=== PATIENT | female | born 1975 | race African-American/Black ===

== ENCOUNTER 2019-01-25 12:39 | Inpatient (IN) | payer OTHER ==
[~2019-01-25] VITALS: Ht 165.1 cm; Wt 104.3 kg
[~2019-01-25 12:39] MED LIST: ALPR0.5T PO
[2019-01-25] MEDS ORDERED: SODIUM CHLORIDE 0.9% 1,000 ML IV ONE ×2 (16:06→17:38)
[2019-01-25 16:52] LABS: BASOPHILS % 0.4 % (0.0-2.0); EOSINOPHILS % 0.4 % (0.0-5.0); HEMATOCRIT. 25.8 % (36.0-48.0); HEMOGLOBIN. 8.4 g/dL (12.0-16.0); LYMPHOCYTES % 22.7 % (20.0-50.0); MEAN CORPUSCULAR HEMOGLOBIN 28.3 pg (28.0-32.0); MEAN PLATELET VOLUME 7.9 fl (7.4-10.4); MONOCYTES % 10.2 % (2.0-8.0); NEUTROPHILS % 66.3 % (40.0-76.0); PLATELET 230 x1000/uL (130-400); RED BLOOD CELL COUNT 2.97 mill/uL (4.2-5.4); RED CELL DISTRIBUTION WIDTH 25.4 % (11.6-14.6)
[2019-01-25 16:56] LABS: CHLORIDE 88 mEq/L (98-107)
[2019-01-25 17:03] LABS: HCG SCREEN NEGATIVE
[2019-01-25 17:40] LABS: PLATELET ESTIMATE NORMAL
[2019-01-25] MEDS ORDERED: KCL 20MEQ/100ML PREMIX 100 ML IV ONE (17:45)
[2019-01-25 18:00] LABS: BG BASE EXCESS 2.7 mmol/L (-2.0-2.0); BG CARBOXYHEMOGLOBIN 0.6 % (0.5-1.5); BG DEOXYHEMOGLOBIN 3.3 % (0.0-5.0); BG HCO3 ACT 24.9 mmol/L (22.0-26.0); BG METHEMOGLOBIN 0.5 % (0.0-1.5); BG OXYGEN SATURATION 96.7 % (92.0-98.5); BG OXYHEMOGLOBIN 95.6 % (94.0-97.0); BG PH 7.551 (7.350-7.450); BG PO2 89.7 mmHg (75.0-100.0); BG SAMPLE SITE RIGHT RADIAL; BG TOTAL HEMOGLOBIN 8.4 g/dL (12.0-18.0); BG VENT MODE ROOM AIR
[2019-01-25 18:24] LABS: CHLORIDE 93 mEq/L (98-107)
[2019-01-25 18:30] LABS: PHOSPHORUS 1.4 mg/dL (2.5-4.9)
[2019-01-25] MEDS ORDERED: ACETAMINOPHEN 325MG TABLET PO PRN (18:45)
[2019-01-25] MEDS ORDERED: IPRATROPIUM/ALBUTEROL 0.5-3(2.5)MG/3ML NEB INH PRN (18:45)
[2019-01-25] MEDS ORDERED: GUAIFENESIN 200MG/10ML SUGAR FREE UDC PO PRN (18:45)
[2019-01-25] MEDS ORDERED: NITROGLYCERIN 0.4MG TABLET SL SL PRN (18:45)
[2019-01-25] MEDS ORDERED: MAGNESIUM/ALUMINUM HYDROXIDE/SIMETHICONE 30ML UDC PO PRN (18:45)
[2019-01-25] MEDS ORDERED: ONDANSETRON HCL 4MG/2ML INJ IV PRN (18:45)
[2019-01-25] MEDS ORDERED: DOCUSATE SODIUM 100MG CAPSULE PO PRN (18:45)
[2019-01-25] MEDS ORDERED: ENOXAPARIN 40MG/0.4ML SYR SUBCUT SCH (18:45)
[2019-01-25] MEDS ORDERED: KETOROLAC 15MG/ML VIAL IV PRN (18:45)
[2019-01-25] MEDS ORDERED: CLONIDINE 0.1MG TABLET PO PRN (18:45)
[2019-01-25] MEDS ORDERED: DEXTROSE 50% WATER 50ML SYRINGE IV PRN (19:00)
[2019-01-25] MEDS ORDERED: KETOROLAC 30MG/ML VIAL IV ONE (19:15)
[2019-01-25 19:24] LABS: CLARITY URINE CLEAR (CLEAR); COLOR URINE DARK YELLOW (YELLOW); KETONES URINE 2+ (NEGATIVE); LEUKOCYTE ESTERASE URINE NEGATIVE (NEGATIVE); NITRITE URINE NEGATIVE (NEGATIVE); OCCULT BLOOD URINE NEGATIVE (NEGATIVE); PH URINE 6.5 (4.5-8.0); PROTEIN URINE NEGATIVE (NEGATIVE); SPECIFIC GRAVITY URINE 1.036 (1.005-1.030)
[2019-01-25 19:30] LABS: BETA HYDROXYBUTYRATE 2.3 mMol/L (0.0-0.3); ETHANOL BLOOD < 10 mg/dL
[2019-01-25 19:46] LABS: *AMPHETAMINES SCREEN URINE NEGATIVE (NEGATIVE); *BARBITURATES SCREEN URINE NEGATIVE (NEGATIVE); *BENZODIAZEPINES SCREEN URINE NEGATIVE (NEGATIVE); *COCAINE SCREEN URINE NEGATIVE (NEGATIVE); METHADONE URINE SCREEN NEGATIVE (NEGATIVE)
[2019-01-25 19:47] LABS: CANNABINOID URINE SCREEN NEGATIVE (NEGATIVE); OPIATES URINE SCREEN NEGATIVE (NEGATIVE); PHENCYCLIDINE URINE SCREEN NEGATIVE (NEGATIVE)
[2019-01-25] MEDS ORDERED: POTASSIUM CHLORIDE 20MEQ TABLET SR PO NR (19:47)
[2019-01-25] MEDS ORDERED: MAGNESIUM 2 G PREMIX 50 ML IV NR (19:47)
[2019-01-25] MEDS ORDERED: KCL 20MEQ/100ML PREMIX 100 ML IV NR (19:49)
[2019-01-25] MEDS ORDERED: SODIUM CHL 0.9% + KCL 20MEQ/L 1,000 ML IV SCH (20:00)
[2019-01-25] MEDS ORDERED: POTASSIUM PHOS,M-BASIC-D-BASIC 30 MMOL in DEXT 5% WATER 500 ML IV NR (20:30)
[2019-01-25] MEDS ORDERED: SODIUM CHLORIDE 0.9% 1000ML BAG (SEPSIS BOLUS) IV ONE (21:00)
[2019-01-25] MEDS ORDERED: CEFTRIAXONE 1 G PREMIX 50 ML IV ONE (21:30)
[2019-01-25 21:34] LABS: CHLORIDE 95 mEq/L (98-107)
[2019-01-25] MEDS ORDERED: IOHEXOL-300 100 ML BOTTLE ONE (21:39)
[2019-01-25 21:49] LABS: PHOSPHORUS 0.9 mg/dL (2.5-4.9)
[2019-01-25] MEDS ORDERED: LEVOFLOXACIN 500MG PREMIX 100 ML IV SCH (22:45)
[2019-01-25 23:00] VITALS: BP 127/93
[2019-01-25] MEDS ORDERED: ZOLPIDEM TARTRATE 5MG TABLET PO PRN (23:00)
[2019-01-25] MEDS: BLOOD SUGAR DIAGNOSTIC STRIP TEST SCH (23:00)
[2019-01-25] MEDS ORDERED: INSULIN GLARGINE UD 100 UNITS/ML SYR SUBCUT SCH (23:30)
[2019-01-25 23:45] VITALS: BP 127/93
[2019-01-26] VITALS (7 sets, daily range): BP systolic 99–125; BP diastolic 68–82
[2019-01-26 00:11] LABS: CHLORIDE 98 mEq/L (98-107)
[2019-01-26 00:17] LABS: PHOSPHORUS 1.1 mg/dL (2.5-4.9)
[2019-01-26] MEDS: FAMOTIDINE 20MG TABLET PO SCH ×3 (00:28→20:29)
[2019-01-26] MEDS: INSULIN LISPRO 100 UNITS/ML SUBCUT SCH ×6 (00:38→20:34)
[2019-01-26 00:53] LABS: T4 FREE 1.29 ng/dL (0.76-1.46)
[2019-01-26] MEDS ORDERED: LEVOFLOXACIN 750MG PREMIX 150 ML IV SCH (01:00)
[2019-01-26 01:47] LABS: FOLIC ACID (FOLATE) SERUM 2.1 ng/mL (>5.38)
[2019-01-26] MEDS: KETOROLAC 15MG/ML VIAL IV PRN ×3 (02:24→21:29)
[2019-01-26] MEDS: BLOOD SUGAR DIAGNOSTIC STRIP TEST SCH ×4 (06:48→20:26)
[2019-01-26 11:44] LABS: BASOPHILS % 0.3 % (0.0-2.0); EOSINOPHILS % 0.8 % (0.0-5.0); HEMATOCRIT. 24.6 % (36.0-48.0); HEMOGLOBIN. 7.8 g/dL (12.0-16.0); LYMPHOCYTES % 23.1 % (20.0-50.0); MEAN CORPUSCULAR HEMOGLOBIN 28.3 pg (28.0-32.0); MEAN CORPUSCULAR VOLUME 89.4 fL (81.0-99.0); MEAN PLATELET VOLUME 7.7 fl (7.4-10.4); MONOCYTES % 9.8 % (2.0-8.0); PLATELET 206 x1000/uL (130-400); RED BLOOD CELL COUNT 2.75 mill/uL (4.2-5.4); RED CELL DISTRIBUTION WIDTH 27.3 % (11.6-14.6)
[2019-01-26 11:50] LABS: CHLORIDE 102 mEq/L (98-107)
[2019-01-26 11:57] LABS: LDL CHOLESTEROL 108 mg/dL (5-100)
[2019-01-26 12:02] LABS: PHOSPHORUS 0.7 mg/dL (2.5-4.9)
[2019-01-26 12:10] LABS: HAPTOGLOBIN 68 mg/dL (30-200)
[2019-01-26] MEDS ORDERED: POTASSIUM PHOS,M-BASIC-D-BASIC 30 MMOL in SODIUM CHLORIDE 0.9% 500 ML IV SCH (12:30)
[2019-01-26] MEDS ORDERED: FOLIC ACID 1 MG in SODIUM CHLORIDE 0.9% 500 ML IV SCH (12:30)
[2019-01-26] MEDS ORDERED: SODIUM CHLORIDE 0.9% 1,000 ML IV SCH (13:30)
[2019-01-26] MEDS ORDERED: NYSTATIN POWDER 15GM TOP SCH (17:00)
[2019-01-26 17:13] LABS: HEPATITIS B SURFACE ANTIGEN NEGATIVE
[2019-01-26 17:43] LABS: HEPATITIS A AB IGM NEGATIVE (NEGATIVE)
[2019-01-26] MEDS ORDERED: INSULIN GLARGINE UD 100 UNITS/ML SYR SUBCUT SCH (23:00)
[2019-01-27] MEDS ORDERED: FOLIC ACID 1MG TABLET PO SCH (09:00)
== END 2019-01-27 00:06 | disposition short-term general hospital (02) | DRG 871 ==
LOC: ER 12:39 → 5WST 19:13 → ENRESERV 19:51
PROVIDERS: ADMIT Internal Medicine; ATTEND Internal Medicine
DX: A41.9 Sepsis, unspecified organism (principal); E43 Unspecified severe protein-calorie malnutrition; K72.00 Acute and subacute hepatic failure without coma; Z88.9 Allergy status to unspecified drugs, medicaments and biological substances; D52.9 Folate deficiency anemia, unspecified; E11.65 Type 2 diabetes mellitus with hyperglycemia; E83.39 Other disorders of phosphorus metabolism; E83.42 Hypomagnesemia; E83.51 Hypocalcemia; E86.0 Dehydration; R74.0 Nonspecific elevation of levels of transaminase and lactic acid dehydrogenase [LDH]; E87.6 Hypokalemia; Z86.32 Personal history of gestational diabetes; Z88.5 Allergy status to narcotic agent; F41.9 Anxiety disorder, unspecified; Z68.38 Body mass index [BMI] 38.0-38.9, adult; Z79.4 Long term (current) use of insulin
CPT/HCPCS: 36415; 36600; 71045; 74177; 80048; 80076; 80305; 80307; 80320; 80329; 82010; 82375; 82607; 82746; 82805; 82962; 83010; 83036; 83540; 83550; 83605; 83615; 83721; 83735; 84100; 84439; 84443; 84703; 86705; 86709; 86803; 87340; 93005; 93970; 96365; 99285; J0696; J1815; J1885; J1956; J2405; J3475; J3480; J3490; J7030; J7040; J7060; Q9967; A4315; G0480

== ENCOUNTER 2019-03-24 12:10 | Inpatient (IN) | payer OTHER ==
[~2019-03-24] VITALS: Ht 165.1 cm; Wt 90.7 kg
[2019-03-24 13:04] LABS: BASOPHILS % 1.4 % (0.0-2.0); EOSINOPHILS % 2.3 % (0.0-5.0); HEMATOCRIT. 39.1 % (36.0-48.0); HEMOGLOBIN. 12.8 g/dL (12.0-16.0); LYMPHOCYTES % 27.6 % (20.0-50.0); MEAN CORPUSCULAR HEMOGLOBIN 29.8 pg (28.0-32.0); MEAN CORPUSCULAR VOLUME 90.7 fL (81.0-99.0); MEAN PLATELET VOLUME 8.1 fl (7.4-10.4); MONOCYTES % 10.4 % (2.0-8.0); NEUTROPHILS % 58.3 % (40.0-76.0); PLATELET 275 x1000/uL (130-400); RED BLOOD CELL COUNT 4.31 mill/uL (4.2-5.4); RED CELL DISTRIBUTION WIDTH 16.6 % (11.6-14.6)
[2019-03-24 13:10] LABS: CHLORIDE 106 mEq/L (98-107)
[2019-03-24 13:14] LABS: INR 1.1; PARTIAL THROMBOPLASTIN TIME 25.2 sec (23.4-31.0); PROTHROMBIN TIME 11.7 sec (9.6-11.0)
[2019-03-24 14:20] LABS: HCG SCREEN NEGATIVE
[2019-03-24] MEDS ORDERED: SODIUM CHLORIDE 0.9% 1,000 ML IV ONE ×2 (14:32→18:44)
[2019-03-24] MEDS ORDERED: LORAZEPAM 2MG/ML CPJ IV ONE ×3 (14:45→19:15)
[2019-03-24 17:32] LABS: CLARITY URINE CLOUDY (CLEAR); COLOR URINE YELLOW (YELLOW); KETONES URINE TRACE (NEGATIVE); LEUKOCYTE ESTERASE URINE 2+ (NEGATIVE); NITRITE URINE NEGATIVE (NEGATIVE); OCCULT BLOOD URINE TRACE (NEGATIVE); PROTEIN URINE NEGATIVE (NEGATIVE); SPECIFIC GRAVITY URINE 1.071 (1.005-1.030)
[2019-03-24 17:49] LABS: *AMPHETAMINES SCREEN URINE NEGATIVE (NEGATIVE); *BARBITURATES SCREEN URINE NEGATIVE (NEGATIVE); *BENZODIAZEPINES SCREEN URINE NEGATIVE (NEGATIVE); *COCAINE SCREEN URINE NEGATIVE (NEGATIVE); METHADONE URINE SCREEN NEGATIVE (NEGATIVE); OPIATES URINE SCREEN NEGATIVE (NEGATIVE)
[2019-03-24 17:51] LABS: CANNABINOID URINE SCREEN NEGATIVE (NEGATIVE); PHENCYCLIDINE URINE SCREEN NEGATIVE (NEGATIVE)
[2019-03-24] MEDS ORDERED: CEFTRIAXONE 1 G PREMIX 50 ML IV ONE (18:15)
[2019-03-24] MEDS ORDERED: IOHEXOL-350 100 ML BOTTLE ONE (18:40)
[2019-03-24] MEDS ORDERED: ONDANSETRON HCL 4MG/2ML INJ IV PRN (20:30)
[2019-03-24] MEDS ORDERED: DEXTROSE 50% WATER 50ML SYRINGE IV PRN ×2 (20:30)
[2019-03-24] MEDS ORDERED: CLONIDINE 0.1MG TABLET PO PRN (20:30)
[2019-03-24] MEDS ORDERED: MAGNESIUM/ALUMINUM HYDROXIDE/SIMETHICONE 30ML UDC PO PRN (20:30)
[2019-03-24] MEDS ORDERED: CEFTRIAXONE 1 G PREMIX 50 ML IV SCH (20:30)
[2019-03-24 21:00] VITALS: BP 125/96
[2019-03-24 22:00] VITALS: BP 129/78
[2019-03-24] MEDS: INSULIN LISPRO 100 UNITS/ML SUBCUT SCH (22:00)
[2019-03-24] MEDS: BLOOD SUGAR DIAGNOSTIC STRIP TEST SCH (23:02)
[2019-03-25 04:00] VITALS: BP 128/65
[2019-03-25] MEDS: BLOOD SUGAR DIAGNOSTIC STRIP TEST SCH ×4 (06:28→21:20)
[2019-03-25 06:38] LABS: BASOPHILS % 0.6 % (0.0-2.0); EOSINOPHILS % 1.6 % (0.0-5.0); HEMATOCRIT. 34.2 % (36.0-48.0); HEMOGLOBIN. 11.3 g/dL (12.0-16.0); LYMPHOCYTES % 21.4 % (20.0-50.0); MEAN CORPUSCULAR HEMOGLOBIN 29.8 pg (28.0-32.0); MEAN CORPUSCULAR VOLUME 90.3 fL (81.0-99.0); MEAN PLATELET VOLUME 8.7 fl (7.4-10.4); MONOCYTES % 12.9 % (2.0-8.0); NEUTROPHILS % 63.5 % (40.0-76.0); PLATELET 258 x1000/uL (130-400); RED BLOOD CELL COUNT 3.79 mill/uL (4.2-5.4); RED CELL DISTRIBUTION WIDTH 16.4 % (11.6-14.6)
[2019-03-25 07:22] LABS: CHLORIDE 110 mEq/L (98-107)
[2019-03-25 07:48] LABS: PHOSPHORUS 3.9 mg/dL (2.5-4.9)
[2019-03-25 07:49] LABS: LDL CHOLESTEROL 98 mg/dL (5-100)
[2019-03-25] MEDS: INSULIN LISPRO 100 UNITS/ML SUBCUT SCH ×4 (07:50→21:37)
[2019-03-25 07:51] LABS: HDL CHOLESTEROL 35 mg/dL (40-59)
[2019-03-25 08:00] VITALS: BP 161/105
[2019-03-25 12:00] VITALS: BP 122/80
[2019-03-25] MEDS ORDERED: POTASSIUM CHLORIDE 20MEQ TABLET SR PO SCH (12:30)
[2019-03-25] MEDS ORDERED: MAGNESIUM 1 G PREMIX 100 ML IV ONE (12:30)
[2019-03-25] MEDS ORDERED: POTASSIUM CHLORIDE INJ 40 MEQ in DEXT 5% WATER 250 ML IV ONE (13:00)
[2019-03-25 15:47] VITALS: BP 119/88
[2019-03-25] MEDS: CEFTRIAXONE 1 G PREMIX 50 ML IV SCH (17:56)
[2019-03-25 19:20] VITALS: BP_SYST 101; BP_SYST 121; BP_DIAS 68; BP_DIAS 87
[2019-03-25 20:00] VITALS: BP 125/81
[2019-03-26 00:18] VITALS: BP 143/90
[2019-03-26 04:00] VITALS: BP 140/73
[2019-03-26] MEDS: INSULIN LISPRO 100 UNITS/ML SUBCUT SCH ×4 (06:41→21:29)
[2019-03-26] MEDS: BLOOD SUGAR DIAGNOSTIC STRIP TEST SCH ×4 (06:41→21:29)
[2019-03-26 07:24] LABS: BASOPHILS % 0.6 % (0.0-2.0); EOSINOPHILS % 4.5 % (0.0-5.0); HEMATOCRIT. 34.1 % (36.0-48.0); HEMOGLOBIN. 11.3 g/dL (12.0-16.0); LYMPHOCYTES % 28.7 % (20.0-50.0); MEAN CORPUSCULAR HEMOGLOBIN 30.1 pg (28.0-32.0); MEAN PLATELET VOLUME 8.3 fl (7.4-10.4); MONOCYTES % 12.2 % (2.0-8.0); PLATELET 256 x1000/uL (130-400); RED BLOOD CELL COUNT 3.75 mill/uL (4.2-5.4); RED CELL DISTRIBUTION WIDTH 16.3 % (11.6-14.6)
[2019-03-26 07:41] LABS: CHLORIDE 112 mEq/L (98-107)
[2019-03-26 08:00] VITALS: BP 137/106
[2019-03-26] MEDS ORDERED: POTASSIUM CHLORIDE 20MEQ TABLET SR PO NR (10:00)
[2019-03-26 12:00] VITALS: BP 157/83
[2019-03-26] MEDS ORDERED: RISPERIDONE 0.25MG TABLET PO NR (15:15)
[2019-03-26] MEDS ORDERED: RISPERIDONE 0.25MG TABLET PO PRN (15:15)
[2019-03-26] MEDS: CEFTRIAXONE 1 G PREMIX 50 ML IV SCH ×2 (18:09→18:38)
[2019-03-26 20:00] VITALS: BP 117/73
[2019-03-27] VITALS: BP 118/90
[2019-03-27 00:10] VITALS: BP 118/90
== END 2019-03-27 02:00 | disposition short-term general hospital (02) | DRG 689 ==
LOC: ER 12:10 → EDBEDREQSVC 14:43 → 6WST 20:02 → EDBEDREQTM 20:10 → EDBEDREQ 20:10 → EDBEDREQSVC 20:10 → ENRESERV 20:29
PROVIDERS: ADMIT Family Medicine Adult Medicine; ATTEND Family Medicine Adult Medicine
PROC: 4A00X4Z Measurement of Central Nervous Electrical Activity, External Approach (ICD-10-PCS; principal; 2019-03-25)
DX: N39.0 Urinary tract infection, site not specified (principal); G92 Toxic encephalopathy; Z86.73 Personal history of transient ischemic attack (TIA), and cerebral infarction without residual deficits; I10 Essential (primary) hypertension; E87.6 Hypokalemia; E83.42 Hypomagnesemia; E11.9 Type 2 diabetes mellitus without complications; R00.0 Tachycardia, unspecified; R74.0 Nonspecific elevation of levels of transaminase and lactic acid dehydrogenase [LDH]; S91.114A Laceration without foreign body of right lesser toe(s) without damage to nail, initial encounter; F10.10 Alcohol abuse, uncomplicated; F41.0 Panic disorder [episodic paroxysmal anxiety]; Z88.9 Allergy status to unspecified drugs, medicaments and biological substances; Z88.5 Allergy status to narcotic agent; Z91.013 Allergy to seafood; W19.XXXA Unspecified fall, initial encounter; Y93.89 Activity, other specified; Y92.89 Other specified places as the place of occurrence of the external cause; Y99.8 Other external cause status; F41.9 Anxiety disorder, unspecified
CPT/HCPCS: 36415; 71045; 71275; 72170; 73562; 73630; 80048; 80061; 80305; 80320; 82140; 82962; 83036; 83735; 83880; 84100; 84132; 84443; 84484; 84703; 93005; 93306; 93880; 96361; 96374; 96375; 97162; 97166; 97530; 99285; A6261; J0696; J1815; J2060; J3475; J3480; J7030; J7050; J7060; Q9967; A4315; G0480